=== PATIENT | male | born 2000 | race Asian ===

== ENCOUNTER 2020-03-22 13:57 | Emergency (ER) | payer OTHER ==
[~2020-03-22] VITALS: Ht 177.8 cm; Wt 81.0 kg
[2020-03-22] MEDS ORDERED: ACETAMINOPHEN 325MG TABLET PO STA (14:34)
[2020-03-22] MEDS ORDERED: VANCOMYCIN 1 G PREMIX 200 ML IV ONE (14:45)
[2020-03-22] MEDS ORDERED: PIPERACILLIN/TAZ 3.375G PREMIX 50 ML IV ONE (14:45)
[2020-03-22] MEDS ORDERED: SODIUM CHLORIDE 0.9% 1000ML BAG (SEPSIS BOLUS) IV ONE (14:45)
[2020-03-22 15:07] LABS: CHLORIDE 106 mEq/L (98-107)
[2020-03-22 15:09] LABS: INR 1.1; PROTHROMBIN TIME 11.7 sec (9.6-11.0)
[2020-03-22 15:18] LABS: HEMATOCRIT. 44.4 % (42.0-52.0); HEMOGLOBIN. 15.1 g/dL (14.0-18.0); MEAN CORPUSCULAR HEMOGLOBIN 29.6 pg (28.0-32.0); MEAN CORPUSCULAR VOLUME 87.1 fL (80.0-94.0); MEAN PLATELET VOLUME 8.8 fl (7.4-10.4); PLATELET 174 x1000/uL (130-400); RED BLOOD CELL COUNT 5.09 mill/uL (4.7-6.1); RED CELL DISTRIBUTION WIDTH 12.3 % (11.6-14.6)
[2020-03-22 15:42] LABS: BG CARBOXYHEMOGLOBIN 0.5 % (0.5-1.5); BG DEOXYHEMOGLOBIN 3.4 % (0.0-5.0); BG FRACTION INSPIRED OXYGEN 21; BG HCO3 ACT 21.9 mmol/L (22.0-26.0); BG METHEMOGLOBIN 0.4 % (0.0-1.5); BG OXYGEN SATURATION 96.6 % (92.0-98.5); BG OXYHEMOGLOBIN 95.7 % (94.0-97.0); BG PCO2 31.8 mmHg (35.0-45.0); BG PH 7.456 (7.350-7.450); BG PO2 84.3 mmHg (75.0-100.0); BG SAMPLE SITE RIGHT RADIAL; BG TOTAL HEMOGLOBIN 14.7 g/dL (12.0-18.0); BG VENT MODE ROOM AIR
[2020-03-22 17:48] LABS: PLATELET ESTIMATE NORMAL
[2020-03-22 22:48] VITALS: BP 111/56
== END 2020-03-22 22:51 | disposition left against medical advice (07) ==
LOC: ER 13:57
DX: A41.9 Sepsis, unspecified organism (principal); R55 Syncope and collapse; W01.0XXA Fall on same level from slipping, tripping and stumbling without subsequent striking against object, initial encounter; Y93.89 Activity, other specified; Y92.531 Health care provider office as the place of occurrence of the external cause
CPT/HCPCS: 36415; 36600; 71045; 80053; 82375; 82805; 83605; 83690; 84145; 84484; 85025; 85610; 87040; 93005; 96365; 96366; 96368; 99285; J2543; J3370; J7030